=== PATIENT | male | born 1960 | race Caucasian/White ===

== ENCOUNTER → 2017-09-23 | Outpatient (CLI) | payer BC ==
[2017-09-23 07:27] LABS: HCT 50.7 % (39.0-53.0); HGB 15.9 gm/dL (13.0-17.5); MCH 29.5 pg (25.0-35.0); MCHC 31.3 g/dL (31.0-37.0); MCV 94.3 fL (80.0-100.0); Mean Platelet Volume 7.8; Platelet Count 190 k/uL (150-450); RBC 5.38 m/uL (4.30-5.90); RDW 14.7 % (11.5-15.5)
[2017-09-23 09:12] LABS: ALT 41 U/L (21-72); AST 22 U/L (17-59); Alkaline Phosphatase 71 U/L (38-126); Anion Gap 8 mmol/L; Blood Urea Nitrogen 18 mg/dL (9-20); Calcium 9.4 mg/dL (8.4-10.2); Carbon Dioxide 32 mmol/L (22-30); Chloride 102 mmol/L (98-107); Cholesterol 182 mg/dL (<200); Glucose 98 mg/dL (74-99); HDL Cholesterol 45 mg/dL (40-60); LDL Cholesterol,Calculated 120 mg/dL (0-99); Potassium 4.7 mmol/L (3.5-5.1); Sodium 142 mmol/L (137-145); Total Bilirubin 0.4 mg/dL (0.2-1.3); Total Protein 6.5 g/dL (6.3-8.2); Triglycerides 84 mg/dL (<150)
[2017-09-23 09:41] LABS: Prostate Specific Antigen 0.75 ng/mL (0.00-4.00)
== END | disposition home or self-care (01) ==
LOC: LABWHC1 07:10
PROVIDERS: ATTEND Family Medicine
DX: Z00.00 Encounter for general adult medical examination without abnormal findings (principal); Z52.9 Donor of unspecified organ or tissue
CPT/HCPCS: 36415; 80053; 80061; 84153; 84402; 84403; 84443; 85027

== ENCOUNTER → 2018-11-05 | Outpatient (CLI) | payer OTHER ==
--- NOTE | 2018-11-05 08:21 | MR ---
EXAMINATION TYPE: MR shoulder RT wo con DATE OF EXAM: 11/05/2018 COMPARISON: None HISTORY: Pain in right shoulder for approximately 1 year/ Impingement TECHNIQUE: Multiplanar, multisequence imaging of the right shoulder is performed without contrast. FINDINGS: Rotator Cuff: There is a small 3 mm intrasubstance tear of the distal insertional fibers of the anter ior supraspinatus. There is mild to moderate supraspinatus tendinopathy with bursal surface fiber fra radames. There is impression on the supraspinatus by the acromioclavicular joint demonstrating acromiocl avicular arthropathy. There is a 5 x 4 mm intrasubstance tear of the infraspinatus anterior fibers and a 8 x 4 mm bursal anderson rface partial-thickness tear of infraspinatus superimposed upon moderate tendinopathy. Osseous cysts are seen within the humeral head at the insertion of the infraspinatus. The teres minor and subscapularis are unremarkable in signal and muscular volume. Acromioclavicular Joint: There is moderate acromioclavicular arthropathy with capsular hypertrophy, s ubchondral cystic formation and marginal osteophytes as well as joint space narrowing. There is resul tant impression upon the myotendinous junction of the supraspinatus. No significant downsloping of th e acromion. Glenohumeral Joint: There are multiple osseous cysts within the humeral head and footplate of the hum erus with small marginal osteophytes of the humeral head and mild narrowing of the glenohumeral joint . There is also mild chondrosis as there is femoral head cartilaginous loss at the glenohumeral joint measuring 1.5 cm. Labrum: The labrum appears grossly intact given limitation of non-arthrogram study. However there is global labral degeneration present. Biceps Tendon: The long head of biceps is in normal location within bicipital groove. There is attenu ation of the intra-articular portion of the biceps tendon, difficult to visualize and axial images re lating to moderate to severe tendinopathy. Other: There is a small amount of fluid in the subcoracoid bursa. No significant glenohumeral joint e ffusion. IMPRESSION: 1. Small 3 mm intrasubstance tear of the distal anterior insertional fibers of the supraspinatus supe rimposed upon mild to moderate tendinopathy with bursal surface fiber fraying. 2. Small 5 mm intrasubstance tear of the insertional fibers of the infraspinatus and 8mm partial-thic kness bursal surface tear of the infraspinatus superimposed upon moderate tendinopathy. 3. Moderate acromioclavicular arthropathy resulting in intrinsic supraspinatus impingement. 4. Mild glenohumeral arthropathy and chondrosis. 5. Global labral degeneration. 6. Moderate to severe interarticular portion biceps tendinosis.
== END | disposition home or self-care (01) ==
LOC: RADMRIMAIN 06:42
PROVIDERS: ATTEND Orthopaedic Surgery Sports Medicine
DX: M75.101 Unspecified rotator cuff tear or rupture of right shoulder, not specified as traumatic (principal); M19.011 Primary osteoarthritis, right shoulder; M67.813 Other specified disorders of tendon, right shoulder; M25.811 Other specified joint disorders, right shoulder

== ENCOUNTER → 2019-02-12 | Outpatient (CLI) | payer OTHER ==
[2019-02-12 07:48] LABS: HCT 46.6 % (39.0-53.0); HGB 15.2 gm/dL (13.0-17.5); MCH 29.4 pg (25.0-35.0); MCHC 32.6 g/dL (31.0-37.0); MCV 90.1 fL (80.0-100.0); Mean Platelet Volume 7.6; Platelet Count 205 k/uL (150-450); RBC 5.17 m/uL (4.30-5.90); RDW 14.2 % (11.5-15.5); WBC 4.3 k/uL (3.8-10.6)
[2019-02-12 11:18] LABS: Albumin 4.2 g/dL (3.80-4.90); Albumin/Globulin Ratio 2.33 (1.60-3.17); Anion Gap 3.2 mmol/L (4.00-12.00); Calcium 9.2 mg/dL (8.7-10.3); Carbon Dioxide 29.8 mmol/L (21.6-31.8); Globulin 1.8 g/dL (1.6-3.3); LDL Cholesterol,Calculated 110.8 mg/dL (0.0-131.0); Potassium 4.8 mmol/L (3.5-5.5); Total Bilirubin 0.4 mg/dL (0.2-1.2); VLDL Calculation 10.2 mg/dL (5.00-40.00)
== END ==
LOC: LABWHC1 07:05
PROVIDERS: ATTEND Family Medicine
DX: Z00.00 Encounter for general adult medical examination without abnormal findings (principal)
CPT/HCPCS: 36415; 80053; 80061; 84153; 85027

== ENCOUNTER → 2019-09-10 | Outpatient (CLI) | payer OTHER ==
[2019-09-10 07:54] LABS: HCT 45.9 % (39.0-53.0); MCH 30.4 pg (25.0-35.0); MCHC 32.8 g/dL (31.0-37.0); MCV 92.7 fL (80.0-100.0); Mean Platelet Volume 6.4; Platelet Count 206 k/uL (150-450); RBC 4.95 m/uL (4.30-5.90); RDW 13.1 % (11.5-15.5); WBC 3.5 k/uL (3.8-10.6)
[2019-09-10 08:02] LABS: Appearance,Urine Clear (Clear); Bilirubin,Urine Negative (Negative); Blood,Urine Negative (Negative); Color,Urine Yellow; Glucose,Urine (UA) Negative (Negative); Ketones,Urine Negative (Negative); Leukocyte Esterase,Urine Negative (Negative); Nitrite,Urine Negative (Negative); Protein,Urine Negative (Negative); Specific Gravity,Urine 1.023 (1.001-1.035); Urobilinogen,Urine <2.0 mg/dL (<2.0)
[2019-09-10 08:04] LABS: INR 0.9 (<1.2); Partial Thromboplastin Time 25.5 sec (22.0-30.0); Prothrombin Time 10.2 sec (9.0-12.0)
[2019-09-10 08:18] LABS: ALT 27 U/L (21-72); AST 26 U/L (17-59); African American GFR (CKD) >90 (>60 ml/min/1.73 sqM); Alkaline Phosphatase 66 U/L (38-126); Anion Gap 6 mmol/L; Blood Urea Nitrogen 18 mg/dL (9-20); Calcium 9.2 mg/dL (8.4-10.2); Carbon Dioxide 28 mmol/L (22-30); Chloride 106 mmol/L (98-107); Glucose 94 mg/dL (74-99); Non-African American GFR(CKD) >90 (>60 ml/min/1.73 sqM); Potassium 4.8 mmol/L (3.5-5.1); Sodium 140 mmol/L (137-145); Total Bilirubin 0.8 mg/dL (0.2-1.3); Total Protein 6.6 g/dL (6.3-8.2)
== END | disposition home or self-care (01) ==
LOC: LABPAT 06:43
PROVIDERS: ATTEND Orthopaedic Surgery Sports Medicine
DX: Z01.812 Encounter for preprocedural laboratory examination (principal)
CPT/HCPCS: 80053; 81003; 85027; 85610; 85730; 87070

== ENCOUNTER 2019-09-18 12:21 | Day surgery (SDC) | payer OTHER ==
[2019-09-16 10:49] VITALS: BMI 30.4
[~2019-09-18 12:21] MED LIST: ACETAMINOPHEN TAB 500 MG TAB PO ONE; DEXAMETHASONE SOD PHOSPHATE 10 MG/ML 1 ML VIAL IV ONE; GABAPENTIN 300 MG CAP PO ONE; HYDROmorphone 0.5 MG/0.5 ML SYRINGE IVP PRN; LACTATED RINGERS 1,000 ML IV SCH; LIDOCAINE 1% 20 ML VIAL (10MG/ML) FOR IV START INTRADERMA PRN; MELOXICAM 7.5 MG TAB PO ONE; MIDAZOLAM 2 MG/2 ML VIAL IV PRN; ONDANSETRON 4 MG/2 ML VIAL IVP ONE; ROPIVACAINE 246.25 MG, EPINEPHrine 0.5 MG, KETOROLAC 30 MG, cloNIDine HCL/PF 80 MCG, WA... MISCELLANE ONE; SCOPOLAMINE 1.5MG/72HR PATCH TRANSDERM ONE; TRANEXAMIC ACID 1,000 MG in SODIUM CHLORIDE 0.9% 100 ML IVPB ONE
[2019-09-18] MEDS ORDERED: MORPHINE SULFATE 2 MG/ML SYRINGE IVP PRN (13:09)
[2019-09-18] MEDS ORDERED: NALOXONE 0.4 MG/ML 1 ML VIAL IV PRN ×2 (13:09→14:15)
[2019-09-18] MEDS ORDERED: diphenhydrAMINE 50 MG/ML 1 ML VIAL IVP PRN (13:09)
[2019-09-18] MEDS ORDERED: ONDANSETRON 4 MG/2 ML VIAL IVP PRN ×2 (13:09→14:15)
[2019-09-18] MEDS ORDERED: TEMAZEPAM 15 MG CAP PO PRN (14:15)
[2019-09-18] MEDS ORDERED: HYDROmorphone 1 MG/ML 1 ML SYRINGE IVP PRN (14:15)
[2019-09-18] MEDS ORDERED: HYDROmorphone 0.5 MG/0.5 ML SYRINGE IVP PRN ×2 (14:15)
[2019-09-18] MEDS ORDERED: HYDROcodone/APAP 10-325MG 1 EACH TAB PO PRN (14:15)
[2019-09-18] MEDS ORDERED: DIAZEPAM 5 MG TAB PO PRN (14:15)
[2019-09-18] MEDS ORDERED: HYDROcodone/APAP 5-325MG 1 EACH TAB PO PRN (14:15)
[2019-09-18] MEDS ORDERED: BISACODYL 10 MG SUPP RECTAL PRN (14:15)
[2019-09-18] MEDS ORDERED: ACETAMINOPHEN TAB 325 MG TAB PO PRN (14:15)
[2019-09-18] MEDS ORDERED: hydrOXYzine PAMOATE 25 MG CAP PO PRN (14:15)
[2019-09-18] MEDS ORDERED: traMADol 50 MG TAB PO PRN (14:15)
[2019-09-18] MEDS ORDERED: MAGNESIUM HYDROXIDE 2,400 MG/10 ML CUP PO PRN (14:15)
[2019-09-18] MEDS ORDERED: NA PHOS,M-B/NA PHOS,DI-BA 133 ML ENEMA RECTAL PRN (14:15)
[2019-09-18] MEDS ORDERED: MORPHINE SULFATE (PF) 0.3 MG/0.3 ML SYR ONE (14:35)
[2019-09-18] MEDS ORDERED: MIDAZOLAM 2 MG/2 ML VIAL ONE (14:35)
[2019-09-18] MEDS ORDERED: TRANEXAMIC ACID 1,000 MG/10 ML VIAL ONE (14:35)
[2019-09-18] MEDS ORDERED: ePHEDrine SULFATE/0.9% NACL/PF 50 MG/5 ML SYRINGE IV ONE (14:35)
[2019-09-18] MEDS ORDERED: fentaNYL (PF) 50 MCG/ML 2 ML AMP ONE (14:35)
[2019-09-18] MEDS ORDERED: PROPOFOL 10 MG/ML 20 ML VIAL IV ONE (14:35)
[2019-09-18] MEDS ORDERED: SODIUM CHLORIDE 0.9% 100 ML BAG ONE (14:35)
[2019-09-18] MEDS ORDERED: ceFAZolin 3,000 MG in SODIUM CHLORIDE 0.9% IRRIGATIO 3,000 ML IRRIGATION ONE (15:09)
[2019-09-18] MEDS ORDERED: LACTATED RINGERS 1,000 ML IV ONE (15:28)
--- NOTE | 2019-09-18 17:00 | XR ---
EXAMINATION TYPE: XR knee limited LT DATE OF EXAM: 09/18/2019 CLINICAL HISTORY: Postoperative evaluation Two views of the left knee are submitted. Identified are changes of total knee arthroplasty with fem oral and tibial components appearing well seated. Postsurgical soft tissue changes are noted. Align ment is anatomic.
[2019-09-18] MEDS: LACTATED RINGERS 1,000 ML IV SCH ×2 (17:40→21:51)
[2019-09-18] MEDS ORDERED: SENNOSIDES-DOCUSATE SODIUM 1 EACH TAB PO SCH (21:00)
[2019-09-18] MEDS: ASPIRIN 325 MG TAB PO SCH (21:41)
--- NOTE | 2019-09-18 23:30 | OP ---
OPERATIVE REPORT DATE OF PROCEDURE: 09/18/2019. SURGEON: Jaime Pablo MD. HEAD STOCK TRANSFER CLERK: Tre MAR. PREOPERATIVE DIAGNOSIS: Left knee osteoarthrosis. POSTOP DIAGNOSIS: Left knee osteoarthrosis. OPERATION: Left total knee arthroplasty. ANESTHESIA: Spinal sedation. ESTIMATED BLOOD LOSS: 100 mL. TOURNIQUET TIME: 58 minutes at 250 mmHg. COMPLICATIONS: None apparent. DRAINS: None. DISPOSITION: Postanesthesia care unit. INDICATIONS: Mr. Rivero is a very pleasant 58-year-old male with longstanding history of left knee pain. History and physical examination are consistent with advanced left knee osteoarthrosis. He has been through significant nonoperative management up to this point. Further treatment options were discussed. He has decided to go forward with a left total knee arthroplasty. The risks of procedure were discussed with him in detail. These risks include, but not limited to risk of infection, nerve damage, bleeding, pain and risk of deep vein thrombosis which could lead to fatal pulmonary embolism. There is also risk of loosening of the implant which could require revision operation. The patient understands the risks. All of his questions were answered to his satisfaction. An appropriate informed consent was obtained. DESCRIPTION OF PROCEDURE: Patient identified in preop holding area. Surgical site was marked by both the patient and myself. He was given 2 g of Ancef IV for prophylactic purposes. He was then transferred to the operative suite. He was placed supine on the operative table. Spinal anesthetic was then administered and dosed per the anesthesia department without apparent complication. Examination under anesthesia was then performed. The patient was approximately 5-10 degrees shy of full extension. He had 100 degrees of flexion. The medial collateral ligament, lateral collateral ligament posterior cruciate ligaments were stable. Tourniquet was then placed high on the left upper thigh well-padded in preparation for surgery. The patient's left lower extremity than prepped and draped in usual sterile fashion. Standard surgical pause undertaken to ensure that we were operating the correct site and that appropriate preoperative antibiotics were given. All staff in the room were in agreement and we proceeded. The outlines patellar marked surgical pen. A planned 12 cm vertical incision centered over the patella was marked surgical pen. Leg was then exsanguinated with an Esmarch dressing. The knee was then flexed and the tourniquet was inflated to 250 mmHg. The total tourniquet time for the procedure was 58 minutes Incision was then made with a 07/2010 blade scalpel. Dissection was carried down sharply overlying fascia. Great care was taken to minimize the skin flaps. The knee was then exposed using a standard medial parapatellar approach. A small cuff of quadriceps tendon was then left for suturing. He was in a bit of varus preoperatively. A standard medial release was then made. Superficial medial collateral ligament dissected off the bone around the posterior aspect of the proximal tibia. The medial meniscus was then excised as well. The lateral meniscus was also released anteriorly. The leg was then externally rotated. The patella was everted. The knee was flexed the retractors then placed to protect the collateral ligaments. I then proceeded to remove the infrapatellar fat pad. This was excised sharply tangentially with fibers of the patellar tendon. I then proceeded to remove peripheral osteophytes. This was done with a rongeur. I then proceeded with the distal femoral resection. He did have a small flexion contracture. A planned 11 mm resection was then done. The femoral canal was then entered in the midline of the femur approximately 10 mm anterior to the origin of the posterior cruciate ligament. The sherin was then advanced down the center of the femur and placed intramedullary. Based on preoperative radiographs, the angle between the anatomic and mechanical axis of the femur was approximately 4-5 degrees. The valgus angle of the distal femoral cutting guide and was then set at 4 degrees for the left knee. The distal femoral cutting guide was then advanced over the intramedullary sherin. This was seated firmly against the femur. I then as mentioned planned to take 11 mm off the distal femur. The cutting blocks then secured on the femur with pins. The jig was removed. The distal femoral cut was made through the slot of the block. The pins then removed. The distal femoral cutting block was removed. The accuracy of this femoral cuts was checked with 2 flat bars. I then proceed with femoral sizing. Posterior referencing sizing guide was held firmly against the resected distal surface of the femur. Posterior condyles were resting on the posterior plane of the guide. The sizing stylus was then placed on the anterior femur. Size was measured as a size 11. I then assessed for femoral rotation. Plan was for 3 degrees of external rotation. Three degrees of external rotation was placed onto the jig. These holes were then marked. I then confirmed the rotation by 3 separate methods. This done using epicondylar axis as well as [place]ites[place] line and posterior referencing. Deemed that the external rotation was proper. I then went forward placing the femoral cutting block. This was placed over the previously placed pin holes. The Grant wing was then advanced. The Grant wing was then placed onto the anterior slots to ensure that we would not notch the anterior femur with the anterior femoral cut. I then proceed with the anterior femoral cut. This was flush with the anterior cortex of the femur. Posterior cuts were then made followed by the anterior chamfer cut, then the posterior chamfer cut. The cutting block was then removed. Throughout the resection, the collateral ligaments were protected with retractors. I then placed a trial size 11 femur. It fit very nice medial-lateral and fit flush with the distal end of the femur. The drill holes were then made. I then proceeded with the tibial cut. I planned for cruciate retaining knee. The guide was placed and set for varus valgus and for slope. The height set for approximate 2 mm resection from the medial tibial plateau which was the lower side. Having alignment amount of resection. The cutting block was then pinned to the proximal tibia. The alignment sherin was removed. The proximal tibia was resected with a reciprocating saw. Again this was done with retractors protecting the collateral ligaments as well as the posterior cruciate ligament. I then proceeded to evaluate the flexion extension gaps. A 10 mm block was then placed. The flexion-extension gaps were equal. I then proceeded with resection of posterior osteophytes. He had fairly minimal posterior osteophytes. This done using a curved osteotome. This resected the posterior osteophytes and posterior capsule stripping was done off the posterior aspect of the femur. The osteophytes were removed. I then proceed to resection of patella. The thickness of patella was measured using the caliper. The thickness was 24 mm. The thickness of the anticipated patellar dome was taken into account. Resection was then performed and confirmed to be equal in 4 quadrants using a caliper. Approximately 14 mm of bone remained after the resection. A 35 x 9 mm standard patellar trial was then placed. The holes were drilled. The trial was then placed. I then proceeded with sizing tibial plate. A size G tibial plate fit very nicely. I then placed the trial femur the tibial tray and patellar button. A 10 mm trial tibial insert was also placed. The components fit very nicely. He had full extension and flexion. The extension and flexion gaps were equal and stable to both varus and valgus stress. The patella tracked appropriately. Tibial tray rotation was marked with a Bovie. This was externally rotated properly. I then proceed with tibial preparation. First I drilled the femoral holes and removed femoral component. The tibial tray was then set for proper external rotation as well as mediolateral placement onto the tibia. It was then pinned into place. I then proceed with punching the keel. I then decided to proceed with cementing of all of our components. The knee was thoroughly irrigated with sterile saline solution via pulse lavage. The lateral lower lateral geniculate artery was identified and cauterized. All blood was removed from the bone of the tibia femur and patella with pulse lavage. I then proceed with cementing. Two packs of antibiotic bone cement prepared on the back table by the surgical supply assistant. I then proceeded with cementing of the tibia first. The cement was impacted into the keel as well as deeply seated in the bone. A second coat cement was then placed. The tibia was then impacted into place. Excess cement was removed with [place]'s and jokers. I then proceed with cementing the femoral component. The femoral component was also cemented using standard technique. Excess cement was removed. A 10 mm trial insert was then placed into the knee. It was brought into full extension with a constant axial load placed until the cement had hardened. The patellar component was then cemented. This was held firmly with a compressive device until the cement had dried. When the cement had dried, the knee was taken out of extension. All excess cement was removed from around the prosthesis. I then trialed the knee with a 10 mm insert. Flexion extension gaps were appropriate. I then trialed with an 11 mm insert. The flexion-extension gaps felt better. The knee was stable. It came into full extension. I decided to go for the 11 mm cross-linked cruciate-retaining tibial insert. Polyethylene was then placed on the tibial tray and locked into place. The knee was then reduced. The knee was again further irrigated with sterile saline solution with antibiotic added. The tourniquet was then deflated. The total tourniquet time for the procedure was 58 minutes at 250 mmHg. Final components were Gia Persona size 11 cruciate-retaining femoral component size G tibial tray, a level 2 mm cruciate retaining femoral polyethylene insert and a 35 x 9 mm patella. I then proceeded with closure. Again, the knee was thoroughly irrigated. The quadriceps tendon. The medial retinaculum were reapproximated with #2 Ethibond suture. The extensor mechanism was then closed with a running #2 Quill suture. Subcutaneous tissues were closed with 2-0 Vicryl interrupted suture. The skin was closed with running 3-0 Quill suture. Dermabond was applied to the incision. Sterile compressive dressing was then applied. All sponge and needle counts were deemed correct prior to closure. The patient tolerated procedure without apparent complication. He was transferred recovery room in stable condition. MMODL / IJN: [id number] /
--- NOTE | 2019-09-19 06:03 | P.PN ---
Progress Note - Text Progress Note Date: 09/19/19 58 yo male status post total knee replacement. Post-op day #1. Patient received intrathecal Duramorph. Patient was seen today, sitting up in bed, pain VAS score 2/10, no headache, no itching, no nausea and vomiting. Did complain of urinary retention. Had straight cath after midnight to empty his bladder. still did not pee on his own. Assessment and plan: Doing well in general no complications from anesthesia.
[2019-09-19 07:41] VITALS: BP 97/61; PULSE 60; RESP 18; TEMP 97.6
[2019-09-19 08:37] LABS: Basophils % (A) 0 %; Eosinophils % (A) 0 %; HCT 38.9 % (39.0-53.0); HGB 12.8 gm/dL (13.0-17.5); Lymphocytes # (A) 1.3 k/uL (1.0-4.8); Lymphocytes % (A) 12 %; MCH 30.4 pg (25.0-35.0); MCV 92.3 fL (80.0-100.0); Mean Platelet Volume 6.6; Monocytes # (A) 0.7 k/uL (0-1.0); Monocytes % (A) 6 %; Neutrophils # (A) 8.7 k/uL (1.3-7.7); Neutrophils % (A) 81 %; Platelet Count 188 k/uL (150-450); RBC 4.21 m/uL (4.30-5.90); WBC 10.8 k/uL (3.8-10.6)
[2019-09-19] MEDS: ASPIRIN 325 MG TAB PO SCH (08:58)
--- NOTE | 2019-09-19 12:56 | P.DS ---
Providers Expected date of discharge: 09/19/19 Attending physician: Jaime Pablo Consults: 09/18/19 14:15 Consult Physician Routine Consulting Provider: Chevy Caballero Consult Reason/Comments: post op medical management Do you want consulting provider notified?: Yes Primary care physician: Mery Michaud - Discharge Diagnosis(es) (1) Status post total left knee replacement Patient was admitted to the OR on 09/18/2019 to undergo a left total knee arthroplasty. He had failed conservative measures as an outpatient and desired to proceed with elective surgery after given informed consent. He underwent the above procedure which he tolerated well without complication. Postoperative hospital course has remained without complication. On day of discharge he is afebrile, vital signs stable, labs within acceptable ranges, tolerating by mouth meds and diet, voiding without difficulty, positive flatus, denies abdominal pain or calf pain, pain is controlled on oral pain medication and has no new complaints. Wound is benign, neurovascular status is intact, calf is soft and nontender, abdomen soft and nontender. Review of systems is negative for numbness, tingling, fever, chills, chest pain, shortness of breath, nausea, vomiting, dizziness, headaches, slurred speech or other. Current Visit: Yes Status: Acute Priority: Medium Procedures: Left TKA Patient Condition at Discharge: Good Plan - Discharge Summary Discharge Rx Participant: Yes New Discharge Prescriptions: New Aspirin 325 mg PO BID #60 tab Docusate [Colace] 100 mg PO BID #60 capsule HYDROcodone/APAP 7.5-325MG [[place] 7.5-325] 1 - 2 each PO Q6HR PRN #56 tab PRN Reason: Pain No Action Dextroamphetamine/Amphetamine [Adderall] 30 mg PO DAILY Aspirin [Adult Low Dose Aspirin EC] 81 mg PO DAILY Discharge Medication List Dextroamphetamine/Amphetamine [Adderall] 30 mg PO DAILY 08/24/18 [History] Aspirin [Adult Low Dose Aspirin EC] 81 mg PO DAILY 09/16/19 [History] Aspirin 325 mg PO BID #60 tab 09/19/19 [Rx] Docusate [Colace] 100 mg PO BID #60 capsule 09/19/19 [Rx] HYDROcodone/APAP 7.5-325MG [[place] 7.5-325] 1 - 2 each PO Q6HR PRN #56 tab 12/05/19 [Rx] Follow up Appointment(s)/Referral(s): Mery Michaud DO [Primary Care Provider] - 1 Week Jaime Pablo MD [STAFF PHYSICIAN] - 09/27/19 4:00 pm Activity/Diet/Wound Care/Special Instructions: Attend outpatient physical therapy as scheduled prior to surgery at [facility]. Keep wound clean and dry Take meds as directed Follow-up with Dr. Pablo in office Weight bear as tolerated May shower in 3 days if no bleeding Discharge Disposition: HOME WITH HOME HEALTH SERVICES
[2019-09-20] MEDS ORDERED: MULTIVITAMINS, THERA 1 EACH TAB PO SCH (12:00)
== END 2019-09-19 15:16 | disposition home health service (06) ==
LOC: OR 12:21 → 4SSUR 16:53 → OR 09-19 15:16
PROVIDERS: ATTEND Orthopaedic Surgery Sports Medicine
DX: M17.12 Unilateral primary osteoarthritis, left knee (principal); R33.9 Retention of urine, unspecified; M19.072 Primary osteoarthritis, left ankle and foot; J45.998 Other asthma; H91.90 Unspecified hearing loss, unspecified ear; I10 Essential (primary) hypertension; G47.33 Obstructive sleep apnea (adult) (pediatric); F90.9 Attention-deficit hyperactivity disorder, unspecified type; Z97.3 Presence of spectacles and contact lenses; Z79.899 Other long term (current) drug therapy; Z79.82 Long term (current) use of aspirin; Z79.1 Long term (current) use of non-steroidal anti-inflammatories (NSAID); Z87.09 Personal history of other diseases of the respiratory system; Z98.890 Other specified postprocedural states; Z90.89 Acquired absence of other organs; Z96.651 Presence of right artificial knee joint; Z86.73 Personal history of transient ischemic attack (TIA), and cerebral infarction without residual deficits; Z91.030 Bee allergy status; Z87.898 Personal history of other specified conditions
CPT/HCPCS: 97161; 85025; 88300; 73560; 27447; C1776; C1713; J2250; J0171; J1200; J1100; J0690 ×3; J2405; J2274; J3010; J1885; J2795; J2704; J0735

== ENCOUNTER 2019-10-22 17:19 | Emergency (ER) | payer OTHER ==
[2019-10-22 17:35] VITALS: RESP 18
[2019-10-22] MEDS ORDERED: LIDOCAINE 1% INJ 10MG/ML (20 ML MDV) SQ ONE (18:17)
[2019-10-22] MEDS ORDERED: HYDROcodone/APAP 5-325MG 1 EACH TAB PO STA (18:17)
[2019-10-22] MEDS ORDERED: KETOROLAC 30 MG/ML 1 ML VIAL IM STA (18:17)
[2019-10-22] MEDS ORDERED: DIPH,PERTUS(ACELL)TETVAC-LF 0.5 ML VIAL IM ONE (18:18)
[2019-10-22] MEDS ORDERED: ceFAZolin 1,000 MG VIAL (IM USE) IM STA (20:08)
[2019-10-22] MEDS ORDERED: CEPHALEXIN 500MG STARTER PACK 4 CAP BTL PO STA (20:10)
[2019-10-22] MEDS ORDERED: ACET/COD 300 MG/30 MG STARTER PACK 6 TAB BTL PO STA (20:12)
--- NOTE | 2019-10-22 20:13 | ED ---
Wound/Laceration HPI - General Chief Complaint: Wound/Laceration Stated Complaint: chainsaw lac lt leg Time Seen by Provider: 10/22/19 18:05 Source: patient, EMS Mode of arrival: EMS Limitations: physical limitation - History of Present Illness Initial Comments: 58-year-old male patient presents to the emergency department today for evaluation of laceration to the left medial lower leg. Patient states approximately an hour ago he was using a chainsaw to cut wood when the chainsaw kicked back and cut his leg. Patient was able to apply tourniquet and dressing in called EMS for transport here. He denies any numbness or tingling to the leg or foot. Reports full range of motion. Patient is unsure when his last tetanus vaccine was given. He denies any other injuries or concerns. Patient denies any headache, neck pain, back pain, chest pain, shortness of breath, dizziness, weakness, abdominal pain, nausea, vomiting, or difficulties with bowel movements or urination. - Related Data Home Medications Medication Instructions Recorded Confirmed Dextroamphetamine/Amphetamine 30 mg PO DAILY 08/24/18 09/18/19 [Adderall] Aspirin [Adult Low Dose Aspirin EC] 81 mg PO DAILY 09/16/19 09/16/19 Previous Rx's Medication Instructions Recorded Aspirin 325 mg PO BID #60 tab 09/19/19 Docusate [Colace] 100 mg PO BID #60 capsule 09/19/19 HYDROcodone/APAP 7.5-325MG [[place] 1 - 2 each PO Q6HR PRN #56 tab 09/19/19 7.5-325] Cephalexin [Keflex] 500 mg PO Q6H #28 cap 10/22/19 Allergies Allergy/AdvReac Type Severity Reaction Status Date / Time bee venom protein (honey bee) Allergy Severe Unknown Verified 10/22/19 17:35 bee pollen Allergy Unknown Verified 10/22/19 17:35 Review of Systems ROS Statement: Those systems with pertinent positive or pertinent negative responses have been documented in the HPI. ROS Other: All systems not noted in ROS Statement are negative. 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, hx diverticulitis, History of Any Multi-Drug Resistant Organisms: None Reported Past Surgical History: Joint Replacement, Orthopedic Surgery, Tonsillectomy Additional Past Surgical History / Comment(s): colonsocopy, rt knee replacement ( total 15 surgeries rt knee including arthroscopy), left knee surgery x2 arthroscopy, left elbow surgery for infection-not sure what organism, Past Anesthesia/Blood Transfusion Reactions: Motion Sickness, Postoperative Nausea & Vomiting (PONV) Past Psychological History: No Psychological Hx Reported Smoking Status: Never smoker Past Alcohol Use History: Occasional Past Drug Use History: None Reported - Past Family History Mother Family Medical History: Cancer Brother(s) Family Medical History: Cancer General Exam Limitations: physical limitation General appearance: alert, in no apparent distress, other (This is a well- developed, well-nourished adult male patient in no acute distress. Vital signs upon presentation are temperature 98.6F, pulse 88, respirations 18, blood pressure 131/87, pulse ox 96% on room air.) Eye exam: Present: normal appearance, PERRL, EOMI. Absent: scleral icterus, conjunctival injection, periorbital swelling ENT exam: Present: normal exam, normal oropharynx, mucous membranes moist Respiratory exam: Present: normal lung sounds bilaterally. Absent: respiratory distress, wheezes, rales, rhonchi, stridor Cardiovascular Exam: Present: regular rate, normal rhythm, normal heart sounds. Absent: systolic murmur, diastolic murmur, rubs, gallop, clicks GI/Abdominal exam: Present: soft, normal bowel sounds. Absent: distended, t enderness, guarding, rebound, rigid Extremities exam: Present: full ROM, normal capillary refill, other (There is 10 cm gaping laceration noted to the left medial lower leg. Bleeding is controlled. There is exposed adipose tissue but no evidence for exposed muscle, tendon, ligament, or vessel. Skin is otherwise pink, warm, dry. Cap refills less than 3 seconds. Pedal and posttibial pulses 2+ and equal bilaterally.). Absent: normal inspection, tenderness, pedal edema, joint swelling, calf tenderness Neurological exam: Present: alert, oriented X3, CN II-XII intact Psychiatric exam: Present: normal affect, normal mood Skin exam: Present: warm, dry, intact, normal color. Absent: rash Course Vital Signs 10/22/19 10/22/19 17:32 20:40 Temperature 98.6 F 98.0 F Pulse Rate 88 61 Respiratory 18 18 Rate Blood Pressure 131/87 133/96 O2 Sat by Pulse 96 95 Oximetry Procedures - Laceration Laceration #1 Consent Obtained: verbal consent Indication: laceration Site: lower extremity (Left medial lower leg) Size (cm): 10 Description: linear Depth: simple, single layer (As well as adipose tissue) Anesthetic Used: lidocaine 1% Anesthesia Technique: local infiltration Amount (mls): 25 Pre-repair: irrigated extensively Type of Sutures: nylon (4-0, 14 sutures), vicryl (5-0, 4 sutures) Number of Sutures: 18 Technique: simple, interrupted Patient Tolerated Procedure: well, no complications Additional Comments: Laceration required 2 layer repair. Medical Decision Making - Medical Decision Making 58-year-old male patient presents to the emergency department today for evaluation of laceration to the left medial lower leg. This injury was inflicted by chainsaw. Physical examination revealed a 10 cm gaping laceration involving adipose layer. Thorough examination of the wound showed no evidence for vessel, tendon, ligament, or muscle injury. This was irrigated extensively. Wound is repaired as documented. Patient did recently have left total knee arthroplasty approximately one month ago. We'll give 1 dose of IM Ancef and started on Keflex. He does have an appointment with his behavioral health specialist at the end of this week, he is instructed to have him evaluate the area. He is instructed follow up with his primary care physician for recheck in 1-2 days. Return parameters were discussed in detail. He verbalizes understanding and agrees with this plan. Disposition Clinical Impression: Laceration of left lower leg Disposition: HOME SELF-CARE Condition: Good Instructions (If sedation given, give patient instructions): Care For Your Stitches (ED), Laceration (ED) Additional Instructions: Keep wound clean and dry. Cleanse twice daily with warm water and antibacterial soap. Follow-up with her primary care physician for further evaluation of the area in 1-2 days. Return to have stitches removed in 14 days. Complete antibiotic prescription and full. Monitor for signs of infection including but not limited to redness, swelling, drainage of pus, fever, or chills. Return to the emergency room for further evaluation for any new, worsening, or concerning symptoms. Prescriptions: Cephalexin [Keflex] 500 mg PO Q6H #28 cap Is patient prescribed a controlled substance at d/c from ED?: No Referrals: Mery Michaud DO [Primary Care Provider] - 1-2 days Time of Disposition: 20:12
[2019-10-22 20:41] VITALS: BP 133/96; PULSE 61; TEMP 98
== END 2019-10-22 20:45 | disposition home or self-care (01) ==
LOC: EC 17:19
DX: S81.812A Laceration without foreign body, left lower leg, initial encounter (principal); Z91.030 Bee allergy status; Z79.82 Long term (current) use of aspirin; Z79.899 Other long term (current) drug therapy; Z86.73 Personal history of transient ischemic attack (TIA), and cerebral infarction without residual deficits; Z23 Encounter for immunization; W27.8XXA Contact with other nonpowered hand tool, initial encounter; Y93.89 Activity, other specified; Y92.009 Unspecified place in unspecified non-institutional (private) residence as the place of occurrence of the external cause
CPT/HCPCS: 90715; 99283; 12034; 96372; 90471; J0690; J2001; J1885

== ENCOUNTER 2021-04-16 11:16 | Day surgery (SDC) | payer OTHER ==
[2021-04-13 16:05] VITALS: BMI 33.5
[~2021-04-16 11:16] MED LIST changes: -ACETAMINOPHEN TAB 500 MG TAB PO ONE; -DEXAMETHASONE SOD PHOSPHATE 10 MG/ML 1 ML VIAL IV ONE; -GABAPENTIN 300 MG CAP PO ONE; -HYDROmorphone 0.5 MG/0.5 ML SYRINGE IVP PRN; -LIDOCAINE 1% 20 ML VIAL (10MG/ML) FOR IV START INTRADERMA PRN; -MELOXICAM 7.5 MG TAB PO ONE; -MIDAZOLAM 2 MG/2 ML VIAL IV PRN; -ONDANSETRON 4 MG/2 ML VIAL IVP ONE; -ROPIVACAINE 246.25 MG, EPINEPHrine 0.5 MG, KETOROLAC 30 MG, cloNIDine HCL/PF 80 MCG, WA... MISCELLANE ONE; -SCOPOLAMINE 1.5MG/72HR PATCH TRANSDERM ONE; -TRANEXAMIC ACID 1,000 MG in SODIUM CHLORIDE 0.9% 100 ML IVPB ONE
[2021-04-16] MEDS ORDERED: LIDOCAINE 1% (10MG/ML) FOR IV START INTRADERMA ONE (12:05)
[2021-04-16 12:08] VITALS: TEMP 97.6
[2021-04-16] MEDS ORDERED: MIDAZOLAM 2 MG/2 ML VIAL ONE (12:48)
[2021-04-16] MEDS ORDERED: PROPOFOL 10 MG/ML 20 ML VIAL IV ONE (12:48)
--- NOTE | 2021-04-16 12:57 | P.GSHP ---
History of Present Illness H&P Date: 04/16/21 Chief Complaint: History of colon polyps Is a 60-year-old male who presents today for colonoscopy. Previous history of colon polyps. 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 History of Any Multi-Drug Resistant Organisms: None Reported Past Surgical History: Joint Replacement, Orthopedic Surgery, Tonsillectomy Additional Past Surgical History / Comment(s): colonsocopy, rt knee replacement ( total 15 surgeries rt knee , left knee surgery x2 arthroscopy, left elbow surgery for infection, TOTAL LEFT KNEE (09/2019) Past Anesthesia/Blood Transfusion Reactions: Motion Sickness, Postoperative Nausea & Vomiting (PONV) Additional Past Anesthesia/Blood Transfusion Reaction / Comment(s): states ponv as a child Past Psychological History: ADD/ADHD, Depression Smoking Status: Never smoker Past Alcohol Use History: Occasional Past Drug Use History: None Reported - Past Family History Mother Family Medical History: Cancer Additional Family Medical History / Comment(s): pancreatic cancer Brother(s) Family Medical History: Cancer Additional Family Medical History / Comment(s): "blood cancer" Medications and Allergies Home Medications Medication Instructions Recorded Confirmed Type Dextroamphetamine/Amphetamine 30 mg PO DAILY 08/24/18 04/16/21 History [Adderall] Aspirin [Adult Low Dose Aspirin EC] 81 mg PO DAILY 09/16/19 04/16/21 History Albuterol Inhaler [Ventolin Hfa 1 puff INHALATION DIRECTED PRN 04/13/21 04/16/21 History Inhaler] Ascorbic Acid [Vitamin C] 500 mg PO DAILY 04/13/21 04/16/21 History Vitamin D (Unknown Dose) 50 mg PO DAILY 04/13/21 04/16/21 History Escitalopram [Lexapro] 20 mg PO DAILY 04/16/21 04/16/21 History Allergies Allergy/AdvReac Type Severity Reaction Status Date / Time bee venom protein (honey bee) Allergy Severe Anaphylaxis Verified 04/16/21 11:52 bee pollen Allergy Anaphylaxis Verified 04/16/21 11:52 Surgical - Exam Vital Signs Temp Pulse Resp BP Pulse Ox 97.6 F 66 18 129/78 98 04/16/21 11:58 04/16/21 11:58 04/16/21 11:58 04/16/21 11:58 04/16/21 11:58 - General well developed, well nourished, no distress - Eyes PERRL - ENT normal pinna - Neck no masses - Respiratory normal expansion - Cardiovascular Rhythm: regular - Abdomen Abdomen: soft, non tender Assessment and Plan Assessment: History of colon polyps. We'll perform colonoscopy.
--- NOTE | 2021-04-16 13:07 | P.OP ---
Date of Procedure: 04/16/21 Preoperative Diagnosis: History of colon polyps Postoperative Diagnosis: Normal colonoscopy Procedure(s) Performed: Colonoscopy. Anesthesia: MAC Surgeon: Jose Jones Pathology: none sent Condition: stable Disposition: PACU Description of Procedure: Nor PROCEDURE: The patient was placed on the endoscopy table in the lateral position. Digital rectal examination was performed which revealed no abnormalities. The prostate was symmetrical without nodules. Flexible colonoscope was then placed in the patient's anus and passed throughout the entire colon. The ileocecal valve was visualized. The cecum, ascending, transverse, descending and sigmoid colon were normal. The rectum was normal as well. There were no masses, polyps or diverticula noted in the entire colon. SUMMARY OF FINDINGS: Normal colonoscopy.
[2021-04-16 13:11] VITALS: RESP 16
[2021-04-16 13:37] VITALS: BP 160/69; PULSE 56
== END 2021-04-16 14:05 | disposition home or self-care (01) ==
LOC: ORWHC2ENDO 11:16
PROVIDERS: ATTEND Surgery
DX: Z87.19 Personal history of other diseases of the digestive system (principal); K92.1 Melena; F32.9 Major depressive disorder, single episode, unspecified; F90.9 Attention-deficit hyperactivity disorder, unspecified type; J45.909 Unspecified asthma, uncomplicated; M19.90 Unspecified osteoarthritis, unspecified site; Z79.82 Long term (current) use of aspirin; Z79.899 Other long term (current) drug therapy; Z86.73 Personal history of transient ischemic attack (TIA), and cerebral infarction without residual deficits
CPT/HCPCS: 45378; J2250; J2704

== ENCOUNTER → 2022-04-19 | Outpatient (CLI) | payer OTHER ==
--- NOTE | 2022-04-19 09:16 | CA ---
Transthoracic Echo Report Name: Quincy Rivero Age: 61 Gender: M : 1960 Exam Date: 04/19/2022 08:27 Exam Location: [facility] Ht (in): 74 Wt (lb): 275 Ordering Physician: Mery Michaud DO Attending/Referring Phys: Gate Watchman Victoria Mosqueda RDCS Procedure CPT: Indications: R94.31 ABNORMAL EKG Cardiac Hx: Technical Quality: Fair Contrast 1: Total Dose (mL): Contrast 2: Total Dose (mL): MEASUREMENTS (Male / Female) Normal Values 2D ECHO LV Diastolic Diameter PLAX 4.1 cm 4.2 - 5.9 / 3.9 - 5.3 cm LV Systolic Diameter PLAX 1.2 cm IVS Diastolic Thickness 1.0 cm 0.6 - 1.0 / 0.6 - 0.9 cm LVPW Diastolic Thickness 1.3 cm 0.6 - 1.0 / 0.6 - 0.9 cm LV Relative Wall Thickness 0.6 RV Internal Dim ED PLAX 2.2 cm M-MODE Aortic Root Diameter MM 3.7 cm LA Systolic Diameter MM 2.7 cm LA Ao Ratio MM 0.7 MV E Point Septal Separation 1.4 cm AV Cusp Separation MM 2.1 cm DOPPLER AV Peak Velocity 92.2 cm/s AV Peak Gradient 3.4 mmHg MV Area PHT 2.6 cm??? MR Peak Velocity 162.9 cm/s MR Peak Gradient 10.6 mmHg Mitral E Point Velocity 55.9 cm/s Mitral A Point Velocity 67.2 cm/s Mitral E to A Ratio 0.8 MV Deceleration Time 294.2 ms TR Peak Velocity 181.9 cm/s TR Peak Gradient 13.2 mmHg Right Ventricular Systolic Press 18.2 mmHg FINDINGS Left Ventricle Normal Left ventricular size, wall thickness, systolic function with no obvious regional wall motion abnormalities. Normal Left ventricular diastolic filling pattern. Left ventricular ejection fraction is estimated at 55-60_%. Right Ventricle The right ventricle is normal in size and function. Right Atrium The right atrium is normal in size. Left Atrium The left atrium is normal in size. Mitral Valve Structurally normal mitral valve without significant stenosis or prolapse. There is trace mitral regurgitation. Aortic Valve Structurally normal aortic valve without significant sclerosis or stenosis. There is no aortic regurgitation. Tricuspid Valve Structurally normal tricuspid valve without significant stenosis. Pulmonary artery systolic pressure is normal. Trace tricuspid regurgitation. Pulmonic Valve Structurally normal pulmonic valve without significant stenosis. There is no pulmonic regurgitation. Pericardium Normal pericardium without effusion. Aorta Normal aortic root dimension. CONCLUSIONS Normal left ventricular dimension and systolic function No significant valvular abnormalities seen Please see above for further details Previewed by: Dr. Leandro Singh MD (Electronically Signed) Final Date: 19 April 2022 09:15
--- NOTE | 2022-04-19 13:01 | CA ---
Exercise Stress Test Report Name: Quincy Rivero Exam Date: 04/19/2022 08:55 Exam Location: [facility] Stress Ht (in): 76 Wt (lb): 275 BSA: 2.54 Ordering Phys: Mery Michaud DO Referring Phys: LAWRENCE, Technologist: rUiel Angulo Age: 61 Gender: M : 1960 Procedure CPT: Indications: R94.31 ABNORMAL EKG ICD-10 Codes: Patient History: Abnormal EKG Medications: Adderal, Aspirin, VIT C,C, and Zinc Meds past 24 hrs: Pretest Chest Pain: STRESS TEST Miguel Angel Protocol Exercise Duration (min:sec): 06:[address] Depressions (mm): Angina Score: Gutierres Score: Resting HR (bpm): 61 Peak HR (bpm): 149 Resting BP (mmHg): 123 / 84 Peak BP (mmHg): 188 / 74 MPHR: 158 Target HR: 134 % MPHR: 94 METS: 8.0 Total Dose: Peak Dose: Atropine: Double Product: 21925 BP Response: Stress Termination: Reached target heart rate Stress Symptoms: No chest pain or symptoms Stress Summary: ECG ANALYSIS Resting ECG: Stress ECG: CONCLUSIONS Excellent exercise tolerance Excellent blood pressure and heart rate response to exercise Normal EKG and response to exercise Dr. Leandro Singh MD (Electronically Signed) Final Date: 19 April 2022 13:00
== END | disposition home or self-care (01) ==
LOC: RADECHMAIN 08:10
PROVIDERS: ATTEND Family Medicine
DX: I08.1 Rheumatic disorders of both mitral and tricuspid valves (principal); R94.31 Abnormal electrocardiogram [ECG] [EKG]
CPT/HCPCS: 93017; 93306

== ENCOUNTER → 2022-09-23 | Outpatient (CLI) | payer OTHER ==
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
== END | disposition home or self-care (01) ==
LOC: RADCTMAIN 08:36
PROVIDERS: ATTEND Podiatrist
DX: M79.671 Pain in right foot (principal); R60.0 Localized edema

== ENCOUNTER → 2023-02-01 | Outpatient (CLI) | payer OTHER ==
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
== END | disposition home or self-care (01) ==
LOC: RADMRIMAIN 16:29
PROVIDERS: ATTEND Family Medicine
DX: M47.26 Other spondylosis with radiculopathy, lumbar region (principal); M43.16 Spondylolisthesis, lumbar region; M51.16 Intervertebral disc disorders with radiculopathy, lumbar region; M62.81 Muscle weakness (generalized)
CPT/HCPCS: 72148

== ENCOUNTER → 2023-03-06 | Outpatient (CLI) | payer OTHER ==
--- NOTE | 2023-03-06 15:00 | NM ---
EXAMINATION TYPE: NM bone scan whole body DATE OF EXAM: 03/06/2023 COMPARISON: NONE CLINICAL INDICATION: Male, 62 years old with history of M54.50 low back pain; Technique: Delayed whole-body scanning was performed following the injection of 24.5 mCi Tc 99m MDP. Images acquired 3 hours post injection. FINDINGS: There is focal intense abnormal activity near the right sternoclavicular joint. Additional patchy abn ormal activity bilateral shoulders, right anterior third and fourth rib ends. Bilateral knee arthropl asties noted. Some increased patchy activity at the lower lumbar spine probably on a degenerative bas is. Additional focal increased activity lateral tibial plateau of the right knee. Prominent increased activity at the right hindfoot and midfoot as well. IMPRESSION: 1. Focal intense abnormal activity near the right sternoclavicular joint. Consider radiographic or fu rther CT assessment. Correlate for any focal palpable abnormality or point tenderness here. This may be on the basis of asymmetric osteoarthrosis. An osseous lesion is not excluded at this time. 2. Some increased activity right anterior third and fourth rib ends. Again, query any point tendernes s here, location of old injury, or signs/symptoms of costochondritis. CT if clinically indicated. 3. Activity at the lower lumbar spine has a more degenerative appearance. 4. Periprosthetic activity along the lateral aspect of the tibial tray component at the right knee re placement. If symptomatic here, consider radiographs. 5. Focal abnormal activity right mid to hindfoot likely on a degenerative basis.
== END | disposition home or self-care (01) ==
LOC: RADNMMAIN 10:14
PROVIDERS: ATTEND Physical Medicine & Rehabilitation
DX: M47.816 Spondylosis without myelopathy or radiculopathy, lumbar region (principal); R93.7 Abnormal findings on diagnostic imaging of other parts of musculoskeletal system; Z96.651 Presence of right artificial knee joint
CPT/HCPCS: 78306; A9503

== ENCOUNTER → 2023-03-20 | Outpatient (CLI) | payer OTHER ==
[2023-03-20 11:15] LABS: Basophils # (A) 0.06 X 10*3/uL; Basophils % (A) 1.4 %; Eosinophils # (A) 0.32 X 10*3/uL; Eosinophils % (A) 7.4 %; HCT 43.8 %; HGB 13.7 d/dL; Lymphocytes % (A) 25.3 %; MCH 29.1 pg; MCHC 31.3 d/dL; Mean Platelet Volume 10.3 FL; Monocytes % (A) 11.5 %; NRBC Per 100 WBC 0 X 10*3/uL; Neutrophils % (A) 52.8 %; Platelet Count 198 X 10*3/uL; RBC 4.71 X 10*6/uL; RDW 13.2 %; WBC 4.35 X 10*3/uL
[2023-03-20 11:27] LABS: Chol/HDL Ratio 3.25 Ratio; LDL Cholesterol,Calculated 111.7 mg/dL; VLDL Calculation 13.62 mg/dL
[2023-03-20 12:49] LABS: ALT 21 U/L; AST 20 U/L; Albumin 3.9 d/dL; Albumin/Globulin Ratio 2.05 Ratio; Alkaline Phosphatase 76 U/L; Blood Urea Nitrogen 21.1 mg/dL; Calcium 8.9 mg/dL; Carbon Dioxide 26.7 mmol/L; Chloride 108 mmol/L; Globulin 1.9 d/dL; Glucose 93 mg/dL; Potassium 4.3 mmol/L; Sodium 143 mmol/L; Total Bilirubin 0.4 mg/dL; Total Protein 5.8 d/dL
== END | disposition home or self-care (01) ==
LOC: LABWHC1 07:11
PROVIDERS: ATTEND Family Medicine
DX: Z00.00 Encounter for general adult medical examination without abnormal findings (principal); Z13.220 Encounter for screening for lipoid disorders; Z13.228 Encounter for screening for other metabolic disorders; F90.0 Attention-deficit hyperactivity disorder, predominantly inattentive type; G47.00 Insomnia, unspecified
CPT/HCPCS: 36415; 80053; 80061; 84443; 85025

== ENCOUNTER → 2023-03-29 | Outpatient (CLI) | payer OTHER ==
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
== END | disposition home or self-care (01) ==
LOC: RADMRIMAIN 18:07
PROVIDERS: ATTEND Podiatrist
DX: S93.324D Dislocation of tarsometatarsal joint of right foot, subsequent encounter (principal); M67.471 Ganglion, right ankle and foot; M65.9 Synovitis and tenosynovitis, unspecified; S93.401A Sprain of unspecified ligament of right ankle, initial encounter; M62.562 Muscle wasting and atrophy, not elsewhere classified, left lower leg

== ENCOUNTER 2024-03-08 21:53 | Emergency (ER) | payer OTHER ==
[2024-03-08 23:15] VITALS: TEMP 97.6
[2024-03-08] MEDS: SODIUM CHLORIDE 0.9% 500 ML 500 ML IV ONE (23:35)
[2024-03-08 23:51] LABS: Basophils # (A) 0.1 k/uL (0-0.2); Basophils % (A) 1 %; Eosinophils # (A) 0.2 k/uL (0-0.7); Eosinophils % (A) 2 %; HCT 42.8 % (39.0-53.0); HGB 13.4 gm/dL (13.0-17.5); Hypochromasia Slight; Lymphocytes # (A) 0.9 k/uL (1.0-4.8); Lymphocytes % (A) 13 %; MCH 26.7 pg (25.0-35.0); MCHC 31.4 g/dL (31.0-37.0); MCV 85.1 fL (80.0-100.0); Monocytes # (A) 0.6 k/uL (0-1.0); Monocytes % (A) 9 %; Neutrophils % (A) 73 %; Platelet Count 205 k/uL (150-450); RBC 5.03 m/uL (4.30-5.90); RDW 15.3 % (11.5-15.5); WBC 6.8 k/uL (3.8-10.6)
[2024-03-09 00:07] LABS: African American GFR (CKD) 88 (>60 ml/min/1.73 sqM); Albumin 3.8 g/dL (3.5-5.0); Anion Gap 4 mmol/L; Blood Urea Nitrogen 24 mg/dL (9-20); Calcium 8.8 mg/dL (8.4-10.2); Carbon Dioxide 24 mmol/L (22-30); Chloride 108 mmol/L (98-107); Glucose 118 mg/dL (74-99); Non-African American GFR(CKD) 76 (>60 ml/min/1.73 sqM); Potassium 4.3 mmol/L (3.5-5.1); Sodium 136 mmol/L (137-145); Total Bilirubin 0.4 mg/dL (0.2-1.3); Total Protein 6.4 g/dL (6.3-8.2)
[2024-03-09 00:08] LABS: ALT 26 U/L (4-49); AST 32 U/L (17-59); Alkaline Phosphatase 92 U/L (38-126); C Reactive Protein <0.5 mg/dL (<1.0); Lipase 112 U/L (23-300)
--- NOTE | 2024-03-09 01:05 | CT ---
EXAM: CT Abdomen and Pelvis Without Intravenous Contrast CLINICAL HISTORY: ITS.REASON CT Reason: RLQ pain - suspect stone TECHNIQUE: Axial computed tomography images of the abdomen and pelvis without intravenous contrast. CTDI is 21.1 mGy and DLP is 1502.4 mGy-cm. This CT exam was performed using one or more of the following dose reduction techniques: automated exposure control, adjustment of the mA and/or kV according to patient size, and/or use of iterative reconstruction technique. COMPARISON: No previous studies. FINDINGS: Lung bases: Minimal scarring and subsegmental atelectasis noted at the lung bases. Heart: Cardiomegaly. Mediastinum: Moderate hiatal hernia and distal esophagitis. ABDOMEN: Liver: Fatty infiltration of the liver is noted. Simple hepatic cysts are noted, based on Hounsfield assessment of the largest. Gallbladder and bile ducts: See below. Pancreas: See below. Spleen: Spleen is normal in contour. Adrenals: The adrenal glands, the head, body, tail of the pancreas and the gallbladder are unremarkable. Kidneys and ureters: Mild to moderate right hydronephrosis and mild right hydroureter. A 0.2 cm obstructing calculus is noted at the right ureterovesical junction seen on series 201 image 146. Several bilateral nonobstructing renal calculi are noted ranging in size from 0.2 x 0.5 cm in extent. Stomach and bowel: Small quantity of ingested material in the stomach. No mucosal thickening. No bowel obstruction. PELVIS: Appendix: Appendix is seen on coronal image 64 and is unremarkable. Bladder: The bladder is underdistended. No stones. Reproductive: Unremarkable as visualized. ABDOMEN and PELVIS: Intraperitoneal space: Unremarkable. No free air. No significant fluid collection. Bones/joints: No acute fracture. No dislocation. Soft tissues: Unremarkable. Vasculature: Unremarkable. No abdominal aortic aneurysm. Lymph nodes: Unremarkable. No enlarged lymph nodes. IMPRESSION: 1. 0.2 cm obstructing right calculus causing right hydronephrosis and right hydroureter. 2. Several bilateral nonobstructing renal calculi are so noted. 3. Appendix is unremarkable.
--- NOTE | 2024-03-09 01:43 | ED ---
Abdominal Pain HPI - General Chief Complaint: Abdominal Pain Stated Complaint: Abd Pain Time Seen by Provider: 03/08/24 23:10 Source: patient Mode of arrival: ambulatory Limitations: no limitations - History of Present Illness Initial Comments: Is a 63-year-old male who presents the ER today for evaluation of colicky right- sided abdominal pain. Patient reports that he had pain yesterday evening it went away and again came back. Pain is associate with nausea but no other complaints. No history of kidney stones. No previous abdominal surgeries. - Related Data Home Medications Medication Instructions Recorded Confirmed Dextroamphetamine/Amphetamine 30 mg PO DAILY 08/24/18 04/16/21 [Adderall] Aspirin [Adult Low Dose Aspirin EC] 81 mg PO DAILY 09/16/19 04/16/21 Albuterol Inhaler [Ventolin Hfa 1 puff INHALATION DIRECTED PRN 04/13/21 04/16/21 Inhaler] Ascorbic Acid [Vitamin C] 500 mg PO DAILY 04/13/21 04/16/21 Vitamin D (Unknown Dose) 50 mg PO DAILY 04/13/21 04/16/21 Escitalopram [Lexapro] 20 mg PO DAILY 04/16/21 04/16/21 Allergies Allergy/AdvReac Type Severity Reaction Status Date / Time bee venom protein (honey bee) Allergy Severe Anaphylaxis Verified 03/08/24 22:29 bee pollen Allergy Anaphylaxis Verified 03/08/24 22:29 Review of Systems ROS Statement: Those systems with pertinent positive or pertinent negative responses have been documented in the HPI. ROS Other: All systems not noted in ROS Statement are negative. 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 History of Any Multi-Drug Resistant Organisms: None Reported Past Surgical History: Joint Replacement, Orthopedic Surgery, Tonsillectomy Additional Past Surgical History / Comment(s): colonsocopy, rt knee replacement ( total 15 surgeries rt knee , left knee surgery x2 arthroscopy, left elbow surgery for infection, TOTAL LEFT KNEE (09/2019) Past Anesthesia/Blood Transfusion Reactions: Motion Sickness, Postoperative Nausea & Vomiting (PONV) Additional Past Anesthesia/Blood Transfusion Reaction / Comment(s): states ponv as a child Past Psychological History: ADD/ADHD, Depression Smoking Status: Never smoker Past Alcohol Use History: Occasional Past Drug Use History: None Reported - Past Family History Mother Family Medical History: Cancer Additional Family Medical History / Comment(s): pancreatic cancer Brother(s) Family Medical History: Cancer Additional Family Medical History / Comment(s): "blood cancer" General Exam - General Exam Comments Initial Comments: Physical Exam GENERAL: Patient is well-developed and well-nourished. Patient is nontoxic and well-hydrated and is in no distress. HENT: Normocephalic, Atraumatic. EYES: PERRL, EOMI PULMONARY: Unlabored respirations. CARDIOVASCULAR: RRR Warm and well perfused extremities ABDOMEN: Soft, nontender, nondistended no peritoneal signs SKIN: No rashes or bruising : Deferred NEUROLOGIC: Alert and oriented Normal speech Normal gait MUSCULOSKELETAL: Moving all extremities with no apparent injury PSYCHIATRIC: No SI/HI Limitations: no limitations Course Vital Signs 03/08/24 03/08/24 03/09/24 22:26 23:26 02:36 Temperature 97.6 F Pulse Rate 56 L 70 72 Respiratory 18 19 18 Rate Blood Pressure 159/98 157/88 138/95 O2 Sat by Pulse 99 96 96 Oximetry 03/09/24 02:39 Temperature Pulse Rate 61 Respiratory 18 Rate Blood Pressure 138/95 O2 Sat by Pulse 97 Oximetry Medical Decision Making - Medical Decision Making Was pt. sent in by a medical professional or institution (, PA, HEALTH AND SAFETY SPECIALIST, urgent care, hospital, or half-way...) When possible be specific @ -No Did you speak to anyone other than the patient for history (EMS, parent, family, police, friend...)? What history was obtained from this source @ - Did you review nursing and triage notes (agree or disagree)? Why? @ -I reviewed and agree with nursing and triage notes Were old charts reviewed (outside hosp., previous admission, EMS record, old EKG, old radiological studies, urgent care reports/EKG's, half-way records)? Report findings @ -No old charts were reviewed Differential Diagnosis (chest pain, altered mental status, abdominal pain women, abdominal pain men, vaginal bleeding, weakness, fever, dyspnea, syncope, headache, dizziness, GI bleed, back pain, seizure, CVA, palpatations, mental health)? @ -Not applicable EKG interpreted by me (3pts min.). @ -As above X-rays interpreted by me (1pt min.). @ -No signs of bowel obstruction no free air CT interpreted by me (1pt min.). @ -Hydronephrosis on the right U/S interpreted by me (1pt. min.). @ -None done What testing was considered but not performed or refused? (CT, X-rays, U/S, labs)? Why? @ -None What meds were considered but not given or refused? Why? @ -None Did you discuss the management of the patient with other professionals (professionals i.e. DrJose, PA, HEALTH AND SAFETY SPECIALIST, lab, RT, psych nurse, social services assistant, supervisor [employer], teacher, aoc director combat plans officer, family service caseworker)? Give summary @ -No Was smoking cessation discussed for >3mins.? @ -No Was critical care preformed (if so, how long)? @ -No Were there social determinants of health that impacted care today? How? (Homelessness, low income, unemployed, alcoholism, drug addiction, transportation, low edu. Level, literacy, decrease access to med. care, skilled nursing, rehab)? @ -No Was there de-escalation of care discussed even if they declined (Discuss DNR or withdrawal of care, Hospice)? DNR status @ -No What co-morbidities impacted this encounter? (DM, HTN, Smoking, COPD, CAD, Cancer, CVA, ARF, Chemo, Hep., AIDS, mental health diagnosis, sleep apnea, morbid obesity)? @ -None Was patient admitted / discharged? Hospital course, mention meds given and route, prescriptions, significant lab abnormalities, going to OR and other pertinent info. @ -Discharged Patient was seen and evaluated history is obtained from the patient. Labs were unremarkable x-ray was unremarkable CT scan shows mild hydronephrosis and a small stone. Patient's been comfortable throughout his stay in the ER. He will be discharged home with Tylenol 3, Zofran and Flomax. Undiagnosed new problem with uncertain prognosis? @ -No Drug Therapy requiring intensive monitoring for toxicity (Heparin, Nitro, Insulin, Cardizem)? @ -No Were any procedures done? @ -No Diagnosis/symptom? @ -Right-sided kidney stone Acute, or Chronic, or Acute on Chronic? @ -Default Uncomplicated (without systemic symptoms) or Complicated (systemic symptoms)? @ -Default Side effects of treatment? @ -No Exacerbation, Progression, or Severe Exacerbation? @ -No Poses a threat to life or bodily function? How? (Chest pain, [place], CA, pneumonia, PE, COPD, DKA, ARF, appy, cholecystitis, CVA, Diverticulitis, Homicidal, Suicidal, threat to staff... and all critical care pts) @ -No - Lab Data Result diagrams: 03/08/24 23:34 03/08/24 23:34 Lab Results 03/08/24 03/08/24 03/08/24 Range/Units 23:34 23:34 23:34 WBC 6.8 (3.8-10.6) k/uL RBC 5.03 (4.30-5.90) m/uL Hgb 13.4 (13.0-17.5) gm/dL Hct 42.8 (39.0-53.0) % MCV 85.1 (80.0-100.0) fL MCH 26.7 (25.0-35.0) pg MCHC 31.4 (31.0-37.0) g/dL RDW 15.3 (11.5-15.5) % Plt Count 205 (150-450) k/uL MPV 8.0 Neutrophils % 73 % Lymphocytes % 13 % Monocytes % 9 % Eosinophils % 2 % Basophils % 1 % Neutrophils # 5.0 (1.3-7.7) k/uL Lymphocytes # 0.9 L (1.0-4.8) k/uL Monocytes # 0.6 (0-1.0) k/uL Eosinophils # 0.2 (0-0.7) k/uL Basophils # 0.1 (0-0.2) k/uL Hypochromasia Slight Sodium 136 L (137-145) mmol/L Potassium 4.3 (3.5-5.1) mmol/L Chloride 108 H (98-107) mmol/L Carbon Dioxide 24 (22-30) mmol/L Anion Gap 4 mmol/L BUN 24 H (9-20) mg/dL Creatinine 1.04 (0.66-1.25) mg/dL Est GFR (CKD-EPI)AfAm 88 (>60 ml/min/1.73 sqM) Est GFR (CKD-EPI)NonAf 76 (>60 ml/min/1.73 sqM) Glucose 118 H (74-99) mg/dL Plasma Lactic Acid Livan 0.8 (0.7-2.0) mmol/L Calcium 8.8 (8.4-10.2) mg/dL Total Bilirubin 0.4 (0.2-1.3) mg/dL AST 32 (17-59) U/L ALT 26 (4-49) U/L Alkaline Phosphatase 92 (38-126) U/L C-Reactive Protein <0.5 (<1.0) mg/dL Total Protein 6.4 (6.3-8.2) g/dL Albumin 3.8 (3.5-5.0) g/dL Lipase 112 (23-300) U/L Urine Color Urine Appearance (Clear) Urine pH (5.0-8.0) Ur Specific [place] (1.001-1.035) Urine Protein (Negative) Urine Glucose (UA) (Negative) Urine Ketones (Negative) Urine Blood (Negative) Urine Nitrite (Negative) Urine Bilirubin (Negative) Urine Urobilinogen (<2.0) mg/dL Ur Leukocyte Esterase (Negative) Urine RBC (0-5) /hpf Urine WBC (0-5) /hpf Urine Bacteria (None) /hpf Urine Mucus (None) /hpf 03/09/24 Range/Units 01:31 WBC (3.8-10.6) k/uL RBC (4.30-5.90) m/uL Hgb (13.0-17.5) gm/dL Hct (39.0-53.0) % MCV (80.0-100.0) fL MCH (25.0-35.0) pg MCHC (31.0-37.0) g/dL RDW (11.5-15.5) % Plt Count (150-450) k/uL MPV Neutrophils % % Lymphocytes % % Monocytes % % Eosinophils % % Basophils % % Neutrophils # (1.3-7.7) k/uL Lymphocytes # (1.0-4.8) k/uL Monocytes # (0-1.0) k/uL Eosinophils # (0-0.7) k/uL Basophils # (0-0.2) k/uL Hypochromasia Sodium (137-145) mmol/L Potassium (3.5-5.1) mmol/L Chloride (98-107) mmol/L Carbon Dioxide (22-30) mmol/L Anion Gap mmol/L BUN (9-20) mg/dL Creatinine (0.66-1.25) mg/dL Est GFR (CKD-EPI)AfAm (>60 ml/min/1.73 sqM) Est GFR (CKD-EPI)NonAf (>60 ml/min/1.73 sqM) Glucose (74-99) mg/dL Plasma Lactic Acid Livan (0.7-2.0) mmol/L Calcium (8.4-10.2) mg/dL Total Bilirubin (0.2-1.3) mg/dL AST (17-59) U/L ALT (4-49) U/L Alkaline Phosphatase (38-126) U/L C-Reactive Protein (<1.0) mg/dL Total Protein (6.3-8.2) g/dL Albumin (3.5-5.0) g/dL Lipase (23-300) U/L Urine Color Colorless Urine Appearance Clear (Clear) Urine pH 5.5 (5.0-8.0) Ur Specific [place] 1.014 (1.001-1.035) Urine Protein Negative (Negative) Urine Glucose (UA) Negative (Negative) Urine Ketones Negative (Negative) Urine Blood Large H (Negative) Urine Nitrite Negative (Negative) Urine Bilirubin Negative (Negative) Urine Urobilinogen <2.0 (<2.0) mg/dL Ur Leukocyte Esterase Negative (Negative) Urine RBC >182 H (0-5) /hpf Urine WBC 1 (0-5) /hpf Urine Bacteria Rare H (None) /hpf Urine Mucus Occasional H (None) /hpf Disposition Clinical Impression: Kidney stone on right side Disposition: HOME SELF-CARE Condition: Stable Instructions (If sedation given, give patient instructions): Kidney Stones (ED) Is patient prescribed a controlled substance at d/c from ED?: No Referrals: Jonathan Cuevas DO [Primary Care Provider] - 1-2 days
[2024-03-09 01:54] LABS: Appearance,Urine Clear (Clear); Bacteria,Urine Rare /hpf; Bilirubin,Urine Negative (Negative); Blood,Urine Large (Negative); Color,Urine Colorless; Glucose,Urine (UA) Negative (Negative); Ketones,Urine Negative (Negative); Leukocyte Esterase,Urine Negative (Negative); Mucus,Urine Occasional /hpf; Nitrite,Urine Negative (Negative); PH, Urine 5.5 (5.0-8.0); Protein,Urine Negative (Negative); RBC,Urine >182 /hpf (0-5); Specific Gravity,Urine 1.014 (1.001-1.035); Urobilinogen,Urine <2.0 mg/dL (<2.0); WBC,Urine 1 /hpf (0-5)
[2024-03-09] MEDS: ACET/COD 300 MG/30 MG STARTER PACK 6 TAB BTL PO STA (02:28)
[2024-03-09] MEDS: ONDANSETRON 4 MG ODT STARTER PACK 2 TAB BTL PO STA (02:28)
[2024-03-09 03:05] VITALS: BP 138/95; PULSE 61; RESP 18
== END 2024-03-09 02:40 | disposition home or self-care (01) ==
LOC: EC 21:53
DX: N13.2 Hydronephrosis with renal and ureteral calculous obstruction (principal); Z91.030 Bee allergy status; Z86.73 Personal history of transient ischemic attack (TIA), and cerebral infarction without residual deficits
CPT/HCPCS: 36415; 80053; 83605; 83690; 85025; 86140; 81001; 74176; 99284; 96360; S0119